=== PATIENT | female | born 1965 | race Caucasian/White ===

== ENCOUNTER 2017-10-03 12:26 | Outpatient (CLI) | payer OTHER ==
--- NOTE | 2017-10-03 16:55 | MRI Preliminary Report ---
Exam: MRI KNEE LT W/O IMPRESSION: 1. Degenerative fraying body and posterior horn medial meniscus. Small horizontal tear at the junctio n with the posterior root. 2. Mild to moderate cartilage loss at the medial compartment and trochlea. 3. Moderate joint effusion. [facility] MUSCULOSKELET[facility] RADIOLOGY SECTION SITE ID: [id number]
--- NOTE | 2017-10-03 17:12 | MRI Report ---
EXAM: LEFT KNEE MRI WITHOUT CONTRAST EXAM DATE: 10/03/2017 01:11 PM. CLINICAL HISTORY: Pain in left knee. COMPARISON: None. TECHNIQUE: Multiplanar, multisequence T1-weighted and fluid-sensitive sequences of the knee without c ontrast. Other: None. FINDINGS: Evaluation mildly limited by patient motion and artifact. Bones: No fracture. Benign bone island in the proximal tibia. Minimal reactive edema at the medial an d lateral compartments. Articular Cartilage: Deep partial to full-thickness loss central aspects medial compartment. Small re gion of deep partial thickness loss and fissuring/tearing at the central trochlea. Shallow fissuring/ irregularity of the medial and lateral patellar facets. Medial Meniscus: Degenerative fraying at the free edge body and posterior horn. Small horizontal tear contacts the inferior articular surface at the junction of the posterior root. Lateral Meniscus: The lateral meniscus is intact. Cruciate Ligaments: The anterior and posterior cruciate ligaments are intact. Collateral Ligaments: The medial collateral and lateral collateral ligamentous structures are intact. Tendons: The quadriceps, patellar, semimembranosus, and popliteus tendons are unremarkable. Musculature: No edema or fatty atrophy. Other: Moderate joint effusion. No popliteal cyst. No loose bodies. The medial and lateral retinacul a are intact. Minimal subcutaneous edema anteriorly. Minimal reactive edema in the fat pads. IMPRESSION: 1. Degenerative fraying body and posterior horn medial meniscus. Small horizontal tear at the junctio n with the posterior root. 2. Mild to moderate cartilage loss at the medial compartment and trochlea. 3. Moderate joint effusion. [facility] MUSCULOSKELETAL RADIOLOGY SECTION Referring Provider Line: [phone] SITE ID: [id number]
== END 2017-10-03 12:27 | disposition home or self-care (01) ==
LOC: DI 12:26
PROVIDERS: ATTEND Nurse Practitioner Family
DX: S83.242A Other tear of medial meniscus, current injury, left knee, initial encounter (principal); M23.92 Unspecified internal derangement of left knee

== ENCOUNTER 2018-03-07 06:15 | Day surgery (SDC) | payer OTHER ==
[2018-03-07 06:52] LABS: HCG UR QUAL NEGATIVE
[2018-03-07] MEDS ORDERED: LACTATED RINGERS 1,000 ML IV ONE ×2 (06:53→08:15)
[2018-03-07 07:06] LABS: BASOPHILS # (AUTO) 0.1 10^3/uL (0.0-0.1); EOSINOPHILS # (AUTO) 0.2 10^3/uL (0.0-0.7); EOSINOPHILS % (AUTO) 1.7 %; HGB - HEMOGLOBIN 14.5 g/dL (12.0-16.0); LYMPHOCYTES % (AUTO) 32.1 %; MEAN CORPUSCULAR HEMOGLOBIN 27.7 pg (27.0-31.0); MEAN CORPUSCULAR HGB CONC 34.6 g/dL (32.0-36.0); MEAN CORPUSCULAR VOLUME 80.2 fL (81.0-99.0); MEAN PLATELET VOLUME 7.9 fL (7.9-10.8); MONOCYTES # (AUTO) 0.4 10^3/uL (0.0-1.0); MONOCYTES % (AUTO) 4.4 %; NEUTROPHILS # (AUTO) 5.6 10^3/uL (1.5-6.6); NEUTROPHILS % (AUTO) 60.8 %; PLT - PLATELET COUNT 307 10^3/uL (130-450); RED BLOOD COUNT 5.23 10^6/uL (4.20-5.40); RED CELL DISTRIBUTION WIDTH 13.7 % (12.0-15.0); WHITE BLOOD COUNT 9.2 x10^3/uL (4.8-10.8)
[2018-03-07] MEDS ORDERED: LIDO GARGLE 30 ML BOTTLE PO ONE ×2 (07:18→07:33)
[2018-03-07 07:19] LABS: ALBUMIN 4.2 g/dL (3.2-5.5); ALBUMIN/GLOBULIN RATIO 0.9 (1.0-2.2); BILIRUBIN,TOTAL 0.8 mg/dL (0.2-1.0); CALCIUM 9.8 mg/dL (8.5-10.3); CREATININE 0.8 mg/dL (0.4-1.0); TOTAL PROTEIN 8.7 g/dL (6.7-8.2)
[2018-03-07] MEDS ORDERED: LIDO GARGLE 30 ML BOTTLE ONE (07:32)
[2018-03-07] MEDS ORDERED: fentaNYL 250 MCG/5 ML VIAL IVP ONE (07:33)
[2018-03-07] MEDS ORDERED: MIDAZOLAM 2 MG/2 ML VIAL IVP ONE (07:33)
[2018-03-07] MEDS ORDERED: LABETALOL 5 MG/1 ML 20 ML MDV IV ONE (07:33)
[2018-03-07] MEDS ORDERED: NALOXONE 0.4 MG/ML VIAL IVP ONE (07:33)
[2018-03-07] MEDS ORDERED: FLUMAZENIL 0.1 MG/1 ML 5 ML MDV IVP ONE (07:33)
[2018-03-07 10:18] VITALS: BP 110/70
== END 2018-03-07 06:16 | disposition home or self-care (01) ==
LOC: SDS 06:15
PROVIDERS: ATTEND Internal Medicine Gastroenterology
PROC: 0DBN8ZZ Excision of Sigmoid Colon, Via Natural or Artificial Opening Endoscopic (ICD-10-PCS; principal; 2018-03-07 07:30)
PROC: 0DJ08ZZ Inspection of Upper Intestinal Tract, Via Natural or Artificial Opening Endoscopic (ICD-10-PCS; 2018-03-07 07:30)
DX: Z12.11 Encounter for screening for malignant neoplasm of colon (principal); K21.9 Gastro-esophageal reflux disease without esophagitis; D12.5 Benign neoplasm of sigmoid colon; K57.30 Diverticulosis of large intestine without perforation or abscess without bleeding; I10 Essential (primary) hypertension; E11.9 Type 2 diabetes mellitus without complications; E78.5 Hyperlipidemia, unspecified; Z87.891 Personal history of nicotine dependence
CPT/HCPCS: 43235; 45385; 80053; 81025; 85025; 93005; A9270; J3010; J7120; 88305

== ENCOUNTER 2019-09-30 10:18 | Outpatient (CLI) | payer OTHER ==
--- NOTE | 2019-10-08 09:43 | Mammography Report ---
Reason: ROUTINE MAMMO Procedure Date: 09/30/2019 Accession Number: [id number] / [id number] Procedure: [facility] - Screening Mammo w/Vimal CPT Code: Final Report FULL RESULT: EXAM: Screening Mammo w/Vimal DATE: 09/30/2019 10:56 AM CLINICAL HISTORY: Screening encounter. History of early menses. History of benign left breast core biopsy. TECHNIQUE: (B) - Bilateral CC and MLO views were obtained. COMPARISON: 06/06/2018 through 10/21/2010. PARENCHYMAL PATTERN: (D) - The breast(s) demonstrate(s) heterogeneously dense fibroglandular parenchyma. FINDINGS: A biopsy clip in the upper outer left breast and a biopsy clip in the upper medial breast clip which is associated with a coarsely calcified mass are stable, typically benign. There are no suspicious masses, calcifications, or areas of distortion. IMPRESSION: Benign findings. BI-RADS category 2. RECOMMENDATION: (ANNUAL) - Recommend routine annual screening mammography. BI-RADS CATEGORY: (2) - Benign Findings. STANDARD QUALIFYING STATEMENTS: 1. This examination was not reviewed with the aid of Computer-Aided Detection (CAD). 2. A negative or benign imaging report should not preclude biopsy if clinically suspicious findings are present. 3. Dense breasts may obscure an underlying neoplasm. 4. This examination was reviewed with the aid of 3D breast imaging (tomosynthesis).
== END 2019-09-30 10:19 | disposition home or self-care (01) ==
LOC: DI.N 10:18
DX: Z12.31 Encounter for screening mammogram for malignant neoplasm of breast (principal)
CPT/HCPCS: 77063; 77067